=== PATIENT | female | born 1960 | race American Indian/Alaskan Native ===

== ENCOUNTER 2016-11-16 19:19 | Emergency (ER) | payer OTHER ==
[2016-11-16 19:20] VITALS: BMI 43.4
[2016-11-16 19:54] VITALS: TEMP 98
--- NOTE | 2016-11-16 21:15 | C.PDOC ---
History Of Present Illness 56 year old female who presents to the ER with a complaint of lower back pain, right hip pain, and right shoulder pain after she slipped on a wet floor and landed on her buttocks. Patient has a Hx of a right shoulder replacement and right hip replacement. Patient denies LOC, weakness, numbness, dysuria, hematuria, or incontinence. Time Seen by Provider: 11/16/16 19:50 Chief Complaint (Nursing): Back Pain History Per: Patient History/Exam Limitations: no limitations Onset/Duration Of Symptoms: Hrs Current Symptoms Are (Timing): Still Present Quality Of Discomfort: Unable To Describe, Aching Previous Symptoms: Back Pain Associated Symptoms: None Exacerbating Factor(s): Nothing Recent travel outside of the [place]: No Past Medical History Reviewed: Historical Data, Nursing Documentation, Vital Signs Vital Signs: Last Vital Signs Temp 98 F 11/16/16 19:51 Pulse 82 11/16/16 21:20 Resp 18 11/16/16 21:20 BP 138/78 11/16/16 21:20 Pulse Ox 98 11/17/16 01:31 - Medical History PMH: No Chronic Diseases - [facility] Procedures COLONOSCOPY (09/03/14) Family History: States: Unknown Family Hx - Social History Hx Alcohol Use: No Hx Substance Use: No - Immunization History Hx Tetanus Toxoid Vaccination: No Hx Influenza Vaccination: No Hx Pneumococcal Vaccination: No Review Of Systems Genitourinary: Negative for: Dysuria, Incontinence, Hematuria Musculoskeletal: Positive for: Shoulder Pain, Back Pain, Other (Right Hip Pain) Neurological: Negative for: Weakness, Numbness Physical Exam - Physical Exam Appears: Non-toxic, No Acute Distress Skin: Normal Color, Warm, Dry Head: Atraumatic, Normacephalic Oral Mucosa: Moist Neck: Normal, Supple Back: Paraspinal Tenderness (Lumbar; Coccygeal) Extremity: Tenderness (right shoulder, right hip), No Deformity, Other (Limited ROM to right shoulder and right hip) Neurological/Psych: Oriented x3, Normal Speech, Normal Cognition ED Course And Treatment O2 Sat by Pulse Oximetry: 98 (Room air) Pulse Ox Interpretation: Normal - Other Rad Right shoulder x-ray X-Ray: Interpreted by Me, Viewed By Me Interpretation: Hardware in place from previous surgery, no acute fractures or dislocations. Right hip x-ray X-Ray: Interpreted by Me, Viewed By Me Interpretation: Hardware in place from previous surgery, no acute fractures or dislocations. Progress Note: Right shoulder x-ray and right hip x-ray ordered. Toradol administered. On reevaluation, patient pain has much improved; she is ambulatory in the ER with a steady gait, will discharge home with instructions to follow up with PMD. Disposition Counseled Patient/Family Regarding: Diagnosis, Need For Followup, Rx Given - Disposition Disposition: HOME/ ROUTINE Disposition Time: 21:09 Condition: STABLE Additional Instructions: Please follow up with PMD Take meds as directed Warm compress Return to ER if worse Prescriptions: Naproxen [Naprosyn] 1 tab PO BID PRN #25 tab PRN Reason: Pain Instructions: Muscle Strain (ED), Contusion in Adults (ED) Forms: [facility] (Macedonian) - Clinical Impression Clinical Impression: Contusion of back, Muscle strain - Scribe Statement The provider has reviewed the documentation as recorded by the Scribe Rahat Arita All medical record entries made by the Scribe were at my direction and personally dictated by me. I have reviewed the chart and agree that the record accurately reflects my personal performance of the history, physical exam, medical decision making, and the department course for this patient. I have also personally directed, reviewed, and agree with the discharge instructions and disposition.
[2016-11-16 21:51] VITALS: BP 138/78; PULSE 82; RESP 18
[2016-11-17 01:18] VITALS: O2SAT 98
--- NOTE | 2016-11-17 10:16 | RAD ---
Right shoulder three views History: Shoulder pain. Comparison: None available. Findings: Status post right shoulder arthroplasty. Postsurgical changes with some cortical productive change along the articular surface of the bony glenoid. Large rounded ossific density seen at the inferior aspect of the glenohumeral joint space measuring 1.7 centimeters which may represent a large loose osteochondral body versus residual osteophytosis. Humeral head appears located. Moderate acromioclavicular joint space degenerative changes with some joint space narrowing and bony hypertrophy. Impression: Status post right shoulder arthroplasty. Postsurgical changes with some cortical productive change along the articular surface of the bony glenoid. Large rounded ossific density seen at the inferior aspect of the glenohumeral joint space measuring 1.7 centimeters which may represent a large loose osteochondral body versus residual osteophytosis. Humeral head appears located. Moderate acromioclavicular joint space degenerative changes with some joint space narrowing and bony hypertrophy. If pain persists, consider MRI.
--- NOTE | 2016-11-17 10:25 | RAD ---
Pelvis and right hip three views History: Pain. Comparison: None available. Findings: Status post right total hip arthroplasty. Anatomic alignment of the hardware. Productive change at the right greater trochanter. Calcified phleboliths in the right hemipelvis. Moderate degenerative changes of the left hip joint space with subchondral sclerosis, joint space narrowing, and osteophytosis. Productive change at the left greater trochanter. Mild sclerosis at the pubic symphysis. Impression: Postsurgical and degenerative changes. If pain persists, consider MRI.
== END 2016-11-16 21:30 | disposition home or self-care (01) ==
LOC: C.ER 19:19
DX: S30.0XXA Contusion of lower back and pelvis, initial encounter (principal); T14.8 Other injury of unspecified body region; W01.0XXA Fall on same level from slipping, tripping and stumbling without subsequent striking against object, initial encounter
CPT/HCPCS: 73030; 73502; 96372; 99283; J1885

== ENCOUNTER 2018-04-17 15:19 | Outpatient (CLI) | payer MEDICARE, OTHER | END 2018-04-17 15:20 | disposition home or self-care (01) | LOC: C.LAB 15:19 → C.CARD 15:20 | DX: M75.41 Impingement syndrome of right shoulder (principal); M75.01 Adhesive capsulitis of right shoulder; S46.811A Strain of other muscles, fascia and tendons at shoulder and upper arm level, right arm, initial encounter; S46.191A Other injury of muscle, fascia and tendon of long head of biceps, right arm, initial encounter; S43.50XA Sprain of unspecified acromioclavicular joint, initial encounter; Z96.611 Presence of right artificial shoulder joint ==

== ENCOUNTER 2018-07-18 09:42 | Day surgery (SDC) | payer MEDICARE, OTHER ==
[2018-07-17 10:48] VITALS: BMI 28.7
[~2018-07-18 09:42] MED LIST: Lactated Ringer's 500 ML IV SCH
[2018-07-18 10:29] VITALS: TEMP 97.8
--- NOTE | 2018-07-18 10:55 | CP.SDSHP ---
Same Day Surgery H & P - History Proposed Procedure: colonoscopy Pre-Op Diagnosis: screening - Previous Medical/Surgical History Previous Surgical History: Rt hipreplacement Csectionx2 - Allergies Allergies: Allergies codeine Allergy (Intermediate, Verified 07/17/18 10:38) HEADACHE severe headache acetaminophen [From Tylenol-Codeine #3] Allergy (Verified 07/17/18 10:38) HEADACHE FOOD COLORING Allergy (Uncoded 09/03/14 10:35) URTICARIA msg Allergy (Uncoded 07/17/18 10:38) HEADACHE PECANS Allergy (Uncoded 09/03/14 10:35) URTICARIA PINEAPPLE Allergy (Uncoded 09/03/14 10:35) URTICARIA - Physical Exam Vital Signs: Vital Signs 07/18/18 10:24 Temperature 97.8 F Pulse Rate 76 Respiratory 19 Rate Blood Pressure 126/70 O2 Sat by Pulse 97 Oximetry - Date & Time Date: 07/18/18 Time: 10:55 Short Stay Discharge - Short Stay Discharge Admitting Diagnosis/Reason for Visit: FAMILY HISTORY OF MALIGNANT NEOPLASM OF DIGESTIVE Disposition: HOME/ ROUTINE
[2018-07-18] MEDS ORDERED: Propofol 10 mg/ml Inj (20 ML) ONE (11:10)
[2018-07-18 11:16] VITALS: O2SAT 100
[2018-07-18 12:44] VITALS: BP 114/56; PULSE 77; RESP 15
== END 2018-07-18 12:42 | disposition home or self-care (01) ==
LOC: C.ENDO 09:42
PROVIDERS: ATTEND Colon & Rectal Surgery
DX: Z12.11 Encounter for screening for malignant neoplasm of colon (principal); Z80.0 Family history of malignant neoplasm of digestive organs; K64.8 Other hemorrhoids
CPT/HCPCS: 45378; J2001; J2704; J7120